=== PATIENT | female | born 1965 | race Caucasian/White ===

== ENCOUNTER 2017-02-24 16:10 | Emergency (ER) | payer OTHER ==
[2017-02-24 16:34] VITALS: TEMP 97.7; O2SAT 100
[2017-02-24] MEDS ORDERED: SODIUM CHLORIDE 0.9% (FLUSH) 10 ML SYG IV PRN (16:47)
--- NOTE | 2017-02-24 17:14 | RAD ---
PROCEDURE: XR CHEST 1 VIEW HISTORY: chest pain, shortness of breath COMPARISON: None TECHNIQUE: Single projection of the chest was done. FINDINGS: The lung ruiz are well inflated . There are no discrete airspace infiltrates, pneumothoraces or pleural effusions. The pulmonary vascularity is normal. The cardiomediastinal silhouette is unremarkable for patient's age and sex. IMPRESSION: There is no acute pleural-parenchymal process seen in the imaged lung ruiz. Location of Interpretation: Teleradiology Electronically signed by: Elroy Mistry MD 02/24/2017 5:13 PM CDT
[2017-02-24] MEDS ORDERED: KCL 20MEQ/WATER FOR INJ 100ML 20 MEQ in PREMIX BAG 1 BAG IVPB ONE (18:12)
--- NOTE | 2017-02-24 18:22 | ED.PDOC ---
History of Present Illness - General Chief Complaint: Behavioral / Psych Stated Complaint: anxious, breathing heavy, tingling in arms Time Seen by Provider: 02/24/17 16:47 Source: patient, RN notes reviewed, Vital Signs reviewed, family - Exam Limitations: no limitations - History of Present Illness Initial Comments: Patient is a 51 y/o female who was going over her tax return and started having chest/back pain on the left side. It was a 7/10, and pressure. She went to go lay down and it improved mildly, however her hands and left arm started tingling. On her way here, her hands started cramping. Patient was hyperventilating. Upon arrival, Patient was crying and hyperventilating. She has left chest pain, back pain, left arm numbness, mild nausea, and shortness of breath. She denies any history of heart disease. She does not smoke, and does not have a family history of heart disease. She is currently on Zoloft 50 mg daily. She has had two panic attacks in the past. This is the third. Timing/Duration: just prior to arrival, getting worse Severity: moderate, severe Episode Description: 1.5 hours Associated Symptoms: anxiety, impaired concentration Allergies/Adverse Reactions: Allergies Meperidine [From Demerol HCl] Allergy (Verified 02/24/17 16:33) Home Medications: Ambulatory Orders ALPRAZolam [Xanax] 0.25 mg PO BID PRN #5 tab 02/24/17 Potassium Chloride [Micro-K] 10 meq PO DAILY #7 cap 02/24/17 Sertraline HCl [Zoloft] 50 mg PO DAILY 02/24/17 Zolpidem Tartrate [Ambien] 10 mg PO BEDTIME PRN 02/24/17 Review of Systems - Review of Systems Constitutional: States: no symptoms reported. Denies: diaphoresis EENTM: States: no symptoms reported Respiratory: States: short of breath. Denies: cough Cardiology: States: chest pain, palpitations Gastrointestinal/Abdominal: States: nausea Genitourinary: States: no symptoms reported Musculoskeletal: States: no symptoms reported Skin: States: no symptoms reported Neurological: States: anxiety Endocrine: States: no symptoms reported Hematologic/Lymphatic: States: no symptoms reported All other Systems: Reviewed and Negative Past Medical History (General) - Patient Medical History Surgical History: other - Vaccination History Hx Tetanus, Diphtheria Vaccination: No Hx Influenza Vaccination: No Hx Pneumococcal Vaccination: No Immunizations Up to Date: No - Social History Hx Tobacco Use: No Hx Alcohol Use: Yes - socially Hx Substance Use: No Hx Substance Use Treatment: No Hx Depression: No - Activities of Daily Living Hospice Agency (if applicable):: None - Female History Patient is a Female of Child Bearing Age (10 -59 yrs old): No Patient : No Family Medical History - Family History Mother Family History: No Known Physical Exam - Physical Exam General Appearance: Alert, Anxious, No apparent distress Eyes, Ears, Nose, Throat Exam: normal ENT inspection Neck: non-tender, full range of motion, supple Respiratory: lungs clear, normal breath sounds, no respiratory distress, no accessory muscle use Cardiovascular/Chest: regular rate, rhythm, no edema, no gallop, no murmur Gastrointestinal/Abdominal: normal bowel sounds, non tender, soft, no organomegaly Extremities Exam: non-tender, normal range of motion Neurological: alert, oriented x 3, anxious Appearance: appropriate appearance, appropriate insight Behavior/Eye Contact/Speech: cooperative, good eye contact, increased rate of speech Thoughts/Hallucinations: normal thought pattern, no apparent hallucination Skin Exam: normal color, warm/dry Progress - Progress Progress: 02/24/17 18:32 After Patient got here, she wass given a non-rebreather mask without oxygen to help with her hyperventilation. It took her about 20 to 30 minutes to calm down. After she was calm, she reported no pain at all. After labs, EKG and CXR were reviewed, I offered to have Pt. admitted for observation so serial enzymes could be done, however she refused. Because I have a very low suspicion for a cardiac etiology, I will discharge her with warnings to return immediately for any recurring symptoms. - Results/Orders Results/Orders: 02/24/17 02/24/17 16:10 17:09 Temperature 97.7 F Pulse Rate [ 106 H pulse ox] Respiratory 20 Rate Blood Pressure 158/105 [Left Arm] O2 Sat by Pulse 100 100 Oximetry 02/24/17 16:47 IV Care:Saline Lock per Protoc QSHIFT Telemetry .ONCE Sodium Chloride 0.9% (Flush) [Saline Flush Syringe] 10 ml IV PRN PRN EKG Stat Pulse Ox Stat 02/24/17 18:12 KCl 20Meq/Water For Inj 100Ml [Potassium 20meq in Water 100ml] 20 meq Premix Bag 1 bag IVPB ONCE Laboratory Results WBC 5.9 K/mm3 (4.8-10.8) 02/24/17 17:11 RBC 4.91 M/mm3 (4.20-5.40) 02/24/17 17:11 Hgb 14.0 gm/dL (12.0-16.0) 02/24/17 17:11 Hct 42.0 % (36.0-47.0) 02/24/17 17:11 MCV 85.4 fl (81.0-99.0) 02/24/17 17:11 MCH 28.4 pg (27.0-31.0) 02/24/17 17:11 MCHC 33.3 g/dL (33.0-37.0) 02/24/17 17:11 RDW 13.9 % (11.5-14.5) 02/24/17 17:11 Plt Count 303 K/mm3 (130-400) 02/24/17 17:11 MPV 8.5 fl (7.40-10.4) 02/24/17 17:11 Absolute Neuts (auto) 2.80 K/uL (1.8-6.8) 02/24/17 17:11 Absolute Lymphs (auto) 2.20 K/uL (1.0-3.4) 02/24/17 17:11 Absolute Monos (auto) 0.70 K/uL (0.2-0.8) 02/24/17 17:11 Absolute Eos (auto) 0.20 K/uL (0.0-0.4) 02/24/17 17:11 Absolute Basos (auto) 0.10 K/uL (0.0-0.1) 02/24/17 17:11 Neutrophils % 47.5 % (42.0-78.0) 02/24/17 17:11 Lymphocytes % 36.8 % (20.0-50.0) 02/24/17 17:11 Monocytes % 11.6 % (2.0-9.0) H 02/24/17 17:11 Eosinophils % 2.9 % (1.0-5.0) 02/24/17 17:11 Basophils % 1.2 % (0.0-2.0) 02/24/17 17:11 PT 10.8 SECONDS (9.4-12.5) 02/24/17 17:11 INR 0.960 02/24/17 17:11 PTT (SP) 33.3 SECONDS (25.1-36.5) 02/24/17 17:11 D-Dimer, Quantitative < 230 ng/mL (0-230) 02/24/17 17:11 Sodium 140 mmol/L (135-145) 02/24/17 17:11 Potassium 3.1 mmol/L (3.6-5.0) L 02/24/17 17:11 Chloride 104 mmol/L (101-111) 02/24/17 17:11 Carbon Dioxide 27 mmol/L (21-31) 02/24/17 17:11 Anion Gap 12.1 (12-18) 02/24/17 17:11 BUN 10 mg/dL (7-18) 02/24/17 17:11 Creatinine 0.75 mg/dL (0.6-1.3) 02/24/17 17:11 BUN/Creatinine Ratio 13.3 (10-20) 02/24/17 17:11 Random Glucose 94 mg/dL (70-105) 02/24/17 17:11 Serum Osmolality 278.2 mOsm/L (275-295) 02/24/17 17:11 Calcium 9.3 mg/dL (8.4-10.2) 02/24/17 17:11 Magnesium 1.9 mg/dL (1.8-2.5) 02/24/17 17:11 Total Bilirubin 0.3 mg/dL (0.2-1.0) 02/24/17 17:11 Direct Bilirubin < 0.1 mg/dL (0-0.2) 02/24/17 17:11 Indirect Bilirubin 0.2 mg/dL (0.2-0.8) 02/24/17 17:11 AST 22 IU/L (10-42) 02/24/17 17:11 ALT 15 IU/L (10-60) 02/24/17 17:11 Alkaline Phosphatase 66 IU/L (42-121) 02/24/17 17:11 Creatine Kinase 79 IU/L (26-140) 02/24/17 17:11 CK-MB (CK-2) 1.4 ng/mL (0.0-4.4) 02/24/17 17:11 CK-MB (CK-2) % Not Reportable 02/24/17 17:11 Troponin I < 0.02 ng/mL (0.01-0.05) 02/24/17 17:11 B-Natriuretic Peptide 16.9 pg/ml (0-100) 02/24/17 17:11 Serum Total Protein 7.8 gm/dL (6.4-8.2) 02/24/17 17:11 Albumin 4.3 g/dl (3.2-5.5) 02/24/17 17:11 - EKG/XRAY/CT EKG: Sinus - 65 bpm, no ST T wave changes Comments: NML axis, NML intervals, no comparison--NSR XRAY: chest - No acute process Departure - Departure Clinical Impression: Panic attack as reaction to stress, Hypokalemia Time of Disposition: 18:36 Disposition: Discharge to Home or Self Care Condition: Excellent Departure Forms: ED Discharge - Pt. Copy, Patient Portal Self Enrollment Instructions: Panic Disorder, DI for Panic Disorder Prescriptions: Potassium Chloride [Micro-K] 10 meq PO DAILY #7 cap ALPRAZolam [Xanax] 0.25 mg PO BID PRN #5 tab PRN Reason: Anxiety Home Medications: Ambulatory Orders ALPRAZolam [Xanax] 0.25 mg PO BID PRN #5 tab 02/24/17 Potassium Chloride [Micro-K] 10 meq PO DAILY #7 cap 02/24/17 Sertraline HCl [Zoloft] 50 mg PO DAILY 02/24/17 Zolpidem Tartrate [Ambien] 10 mg PO BEDTIME PRN 02/24/17
[2017-02-24] MEDS ORDERED: KCL 20MEQ/WATER FOR INJ 100ML 0 ML IVPB ONE (18:44)
[2017-02-24] MEDS ORDERED: POTASSIUM CHLORIDE 20 MEQ TAB PO ONE (18:56)
[2017-02-24 19:07] VITALS: BP 125/79
== END 2017-02-24 19:07 | disposition home or self-care (01) ==
LOC: ER 16:10
DX: F43.0 Acute stress reaction (principal); E87.6 Hypokalemia; Z88.8 Allergy status to other drugs, medicaments and biological substances

== ENCOUNTER 2018-11-16 12:46 | Emergency (ER) | payer OTHER ==
--- NOTE | 2018-11-16 13:22 | ED.PDOC ---
History of Present Illness - General Chief Complaint: Abdominal Pain Stated Complaint: abdominal pain Time Seen by Provider: 11/16/18 13:21 Information Source: patient Exam Limitations: no limitations - History of Present Illness Initial Comments: Baljeet Fuller 53 y/o female came to ER with left sided dull ache which comes and goes for the last 3 days non radiating.Able to eat meals but this am had one episode of watery diarrhea,non bloody stool,no dysuria,no hematuria but also had been dry heaving this am.Stated that she had kidney stones in the past.Denies chronic medical problem.Stated had normal Pap smear 2 years ago.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 Abdominal Pain Onset Location: LLQ, other Pain Radiation: no radiation Quality: moderate, dull, intermittent Timing/Duration: intermittent, other - 3 days Improving Factors: nothing Worsening Factors: nothing Associated Symptoms: diarrhea Review of Systems - Review of Systems Constitutional: States: no symptoms reported EENTM: States: no symptoms reported Respiratory: States: no symptoms reported Cardiology: States: no symptoms reported Gastrointestinal/Abdominal: States: see HPI Genitourinary: States: no symptoms reported Musculoskeletal: States: see HPI, muscle pain - x one year right side interscapular area on movement Skin: States: no symptoms reported Neurological: States: no symptoms reported Past Medical History (General) - Patient Medical History Hx Seizures: No Hx Asthma: No Hx Congestive Heart Failure: No Hx Thyroid Disease: No Hx Diabetes: No Hx Other PMH: Yes - kidney stones Surgical History: other - basket extraction ureterolithiasis right - Vaccination History Hx Tetanus, Diphtheria Vaccination: No Hx Influenza Vaccination: No Hx Pneumococcal Vaccination: No - Social History Hx Tobacco Use: No Hx Alcohol Use: Yes - socially Hx Substance Use: No Hx Substance Use Treatment: No Hx Depression: No Hx Physical Abuse: No Hx Emotional Abuse: No - Activities of Daily Living Patient Lives Alone: No - Female History Patient is a Female of Child Bearing Age (10 -59 yrs old): Yes Patient : No Family Medical History - Family History Mother Hx Family Diabetes: Yes - dad Hx Family;Other: Gallstones Physical Exam - Physical Exam General Appearance: Alert, Comfortable, No apparent distress Eyes, Ears, Nose, Throat Exam: normal ENT inspection, pharynx normal Neck: full range of motion, normal inspection Respiratory: lungs clear, no respiratory distress Cardiovascular/Chest: normal peripheral pulses, regular rate, rhythm, no murmur Peripheral Pulses: No deficit Gastrointestinal/Abdominal: soft, no organomegaly, tenderness - left side abdomen,no peritoneal signs Extremity: no pedal edema, no calf tenderness Neurologic: alert, oriented x 3 Skin Exam: normal color, warm/dry Progress - Progress Progress: 11/16/18 14:00 Vital Signs - 8 hr 11/16/18 12:53 Pulse Rate [ 84 left brachial] Respiratory 20 Rate Blood Pressure 112/70 [left brachial] O2 Sat by Pulse 99 Oximetry - Results/Orders Results/Orders: 11/16/18 13:23 IV Care:Saline Lock per Protoc QSHIFT URINALYSIS Stat 11/16/18 14:16 Hold Metformin x 48Hrs [id number] Laboratory Results - last 24 hr 11/16/18 11/16/18 11/16/18 12:58 13:23 13:23 WBC 6.5 RBC 4.75 Hgb 13.3 Hct 40.8 MCV 86.0 MCH 28.1 MCHC 32.7 L Plt Count 361 MPV 8.5 Absolute Neuts (auto) 4.30 Absolute Lymphs (auto) 1.50 Absolute Monos (auto) 0.60 Absolute Eos (auto) 0.00 Absolute Basos (auto) 0.00 Neutrophils % 65.7 Lymphocytes % 23.0 Monocytes % 9.9 H Eosinophils % 0.7 L Basophils % 0.7 PT 9.5 INR 0.95 PTT (SP) 24.6 Sodium 137 Potassium 4.2 Chloride 102 Carbon Dioxide 25 Anion Gap 14.2 BUN 12 Creatinine 0.73 BUN/Creatinine Ratio 16.4 Random Glucose 88 Serum Osmolality 273.0 L Lactic Acid 0.9 Calcium 9.9 Magnesium 1.9 Total Bilirubin 0.7 Direct Bilirubin < 0.1 Indirect Bilirubin 0.6 AST 20 ALT 14 Alkaline Phosphatase 67 Creatine Kinase 68 CK-MB (CK-2) 1.1 CK-MB (CK-2) % Not Reportable Troponin I < 0.02 Serum Total Protein 7.9 Albumin 4.2 Urine Color Yellow Urine Appearance Clear Urine pH 6.0 Ur Specific [place] 1.025 Urine Protein Trace Urine Glucose (UA) Negative Urine Ketones Negative Urine Blood Trace-intact H Urine Nitrite Negative Urine Bilirubin Small H Urine Urobilinogen 0.2 Ur Leukocyte Esterase Negative Urine RBC 0 Urine WBC 0 Ur Epithelial Cells 1-3 Urine Bacteria 0 - EKG/XRAY/CT XRAY: chest - negative exam/radiologist CT Ordered: Yes - abd/p-w/contast ? pancolitis Departure - Departure Clinical Impression: Colitis, nonspecific, Right upper limb pain Abdominal pain Qualifiers: Abdominal location: left lower quadrant Qualified Code(s): R10.32 - Left lower quadrant pain Time of Disposition: 15:20 Disposition: Discharge to Home or Self Care Condition: Fair Departure Forms: ED Discharge - Pt. Copy, Patient Portal Self Enrollment Instructions: DI for Abdominal Pain-Adult, Viral Gastroenteritis, Adult (DC), [place] Diet Diet: bland diet - until better avoid spicy greasy foods until better Prescriptions: Acetamin W/Cod #3 Tab [Tylenol w/CODEINE #3] 1 ea PO TID PRN #10 tab PRN Reason: Pain Home Medications: Ambulatory Orders ALPRAZolam [Xanax] 0.25 mg PO BID PRN #5 tab 02/24/17 Potassium Chloride [Micro-K] 10 meq PO DAILY #7 cap 02/24/17 Sertraline HCl [Zoloft] 25 mg PO DAILY 02/24/17 Zolpidem Tartrate [Ambien] 10 mg PO BEDTIME PRN 02/24/17 Acetamin W/Cod #3 Tab [Tylenol w/CODEINE #3] 1 ea PO TID PRN #10 tab 11/16/18 Additional Instructions: follow up with primary Md 18 November 2018 for recheck as needed;Return to ER as needed
[2018-11-16] MEDS ORDERED: PROCHLORPERAZINE INJ 10 MG/2 ML VIAL IV ONE (13:23)
[2018-11-16] MEDS ORDERED: MORPHINE SULFATE INJ 10 MG/ML VIAL IV ONE (13:23)
[2018-11-16] MEDS ORDERED: LACTATED RINGERS 1,000 ML IVS ONE (13:23)
--- NOTE | 2018-11-16 13:59 | RAD ---
EXAM DESCRIPTION: Chest,1 View CLINICAL HISTORY: pain COMPARISON: February 24, 2017 FINDINGS: The cardiomediastinal silhouette is unremarkable. There is no airspace consolidation or pleural effusion. The bronchovascular markings are within normal limits, and the lungs are not hyperinflated. There is no pneumothorax or acute fracture. IMPRESSION: Negative exam. Electronically signed by: Adin Higgins MD 11/16/2018 1:58 PM FISHERIES SPECIALIST
[2018-11-16 14:42] VITALS: TEMP 98.8; O2SAT 100
--- NOTE | 2018-11-16 15:10 | CT ---
PROCEDURE: CT Abdomen and Pelvis With Intravenous Contrast CLINICAL INDICATION: The patient is 53 years old and is Female; left sided abdominal pain. TECHNIQUE: Axial computed tomography images of the abdomen and pelvis with intravenous contrast. Sagittal and coronal reformatted images were created and reviewed. This CT exam was performed according to our departmental dose-optimization program, which includes one or more of the following dose reduction techniques: automated exposure control, adjustment of the mA and/or kV according to patient size, and/or use of iterative reconstruction technique. COMPARISON: No relevant prior studies available. FINDINGS: LUNG BASES: Lung bases are unremarkable. MEDIASTINUM: There is a small hiatal hernia identified. ABDOMEN: LIVER: Focal fat deposition adjacent to the falciform ligament within the liver. GALLBLADDER AND BILE DUCTS: The gallbladder is not inflamed. However, there are dependent layering small calculi in the fundus. No ductal dilation. PANCREAS: Unremarkable. No ductal dilation. No discrete lesion. No acute charito-pancreatic inflammatory change. SPLEEN: Unremarkable. No splenomegaly. No splenic lesion noted. ADRENALS: Unremarkable. No mass. KIDNEYS AND URETERS: There is a retroaortic LEFT renal vein. No hydronephrosis. STOMACH AND BOWEL: There is diffuse colonic underdistention vs. mild infectious pancolitis. It would be very difficult to tell the difference as there is no pericolonic inflammation. Does the patient have diarrheal illness? There is no evidence of diverticulitis. There is no evidence of bowel obstruction. There is no oral contrast in the bowel. PELVIS: APPENDIX: The appendix is visualized and is normal in appearance. BLADDER: Urinary bladder is unremarkable. REPRODUCTIVE: Unremarkable as visualized. ABDOMEN and PELVIS: INTRAPERITONEAL SPACE: Unremarkable. No free air. No significant fluid collection. BONES/JOINTS: See above. SOFT TISSUES: Unremarkable. VASCULATURE: See above. LYMPH NODES: Unremarkable. No significant retroperitoneal or pelvic lymphadenopathy. IMPRESSION: 1. The gallbladder is not inflamed. However, there are dependent layering small calculi in the fundus. 2. There is diffuse colonic underdistention vs. mild infectious pancolitis. It would be very difficult to tell the difference as there is no pericolonic inflammation. Does the patient have diarrheal illness? No diverticulitis or structures. Electronically signed by: Uriel Sanchez MD 11/16/2018 3:09 PM STAFFING [employer]ANCH MANAGER
[2018-11-16 15:30] VITALS: BP 109/66
== END 2018-11-16 15:37 | disposition home or self-care (01) ==
LOC: ER 12:46
DX: K52.9 Noninfective gastroenteritis and colitis, unspecified (principal); R10.32 Left lower quadrant pain; M79.601 Pain in right arm; Z87.442 Personal history of urinary calculi
CPT/HCPCS: 71045; 74177; 80048; 80076; 81001; 82550; 82553; 83605; 84484; 85025; 85610; 85730; J7120

== ENCOUNTER → 2020-04-07 | Outpatient (CLI) | payer SELFPAY | LOC: LAB.NP 17:26 | PROVIDERS: ATTEND Nurse Practitioner Family | DX: B97.21 SARS-associated coronavirus as the cause of diseases classified elsewhere (principal) ==